=== PATIENT | female | born 1950 ===

== ENCOUNTER 2017-08-06 07:19 | Outpatient (CLI) | payer OTHER | END 2017-08-06 07:32 | disposition home or self-care (01) | LOC: EDBD 07:19 → RAD 07:19 | DX: M54.5 Low back pain (principal); M54.2 Cervicalgia ==

== ENCOUNTER 2017-08-15 11:34 | Outpatient (CLI) | payer OTHER | END 2017-08-15 17:00 | disposition home or self-care (01) | LOC: MRI 11:34 | DX: M54.2 Cervicalgia (principal) | CPT/HCPCS: 72141 ==